=== PATIENT | female | born 1970 | race Caucasian/White ===

== ENCOUNTER 2017-06-29 15:32 | Inpatient (IN) | payer MEDICAID ==
[~2017-06-29] VITALS: Ht 170.2 cm; Wt 110.0 kg
[2017-06-29] MEDS ORDERED: pantoprazole IV 80 MG in normal saline 100ml IV soln 100 ML IV ONE (16:00)
[2017-06-29] MEDS ORDERED: pantoprazole 40 MG vial IV ONE (16:15)
[2017-06-29 16:22] LABS: BASOPHILS % (AUTO) 0.7 % (0-1); EOSINOPHILS # (AUTO) 0.2 X10'3 (0-0.9); EOSINOPHILS % (AUTO) 3.1 % (0-6); LYMPHOCYTES # (AUTO) 1.3 X10'3 (1.1-4.8); LYMPHOCYTES % (AUTO) 21.2 % (21-51); MEAN CORPUSCULAR HEMOGLOBIN 21.3 PG (27.0-31.0); MEAN CORPUSCULAR HGB CONC 31.1 % (33.0-36.5); MEAN CORPUSCULAR VOLUME 68.7 FL (78-98); MEAN PLATELET VOLUME 7.4 FL (7.4-10.4); MONOCYTES # (AUTO) 0.5 X10'3 (0-0.9); MONOCYTES % (AUTO) 8.6 % (2-12); NEUTROPHILS # (AUTO) 4.1 X10'3 (1.8-7.7); NEUTROPHILS % (AUTO) 66.4 % (42-75); PLATELET COUNT 337 X10'3 (140-440); RED BLOOD COUNT 2.77 X10'6 (4.20-5.60); WHITE BLOOD COUNT 6.1 X10'3 (4.5-11.0)
[2017-06-29 16:25] LABS: HEMOGLOBIN 5.9 g/dl (12.0-16.0)
[2017-06-29 16:30] LABS: INR 0.9 INR; PROTHROMBIN TIME 9.7 SECONDS (9.0-12.0)
[2017-06-29] MEDS ORDERED: normal saline 1000ML IV soln IVB ONE (16:30)
[2017-06-29 16:39] LABS: OCCULT BLOOD STOOL POSITIVE (Neg)
[2017-06-29 16:44] LABS: ALANINE AMINOTRANSFERASE 26 U/L (12-78); ALBUMIN 3.2 G/DL (3.4-5.0); ALKALINE PHOSPHATASE 67 IU/L (46-116); ANION GAP 10 (8-16); ASPARTATE AMINO TRANSFERASE 17 U/L (10-37); BILIRUBIN,TOTAL 0.2 MG/DL (0.1-1.0); BLOOD UREA NITROGEN 20 MG/DL (7-18); BUN/CREATININE RATIO 31.3 (6.6-38.0); CALCIUM 8.2 MG/DL (8.5-10.1); CHLORIDE 108 MMOL/L (99-107); CREATININE 0.64 MG/DL (0.40-0.90); GLUCOSE 99 MG/DL (70-104); POTASSIUM 3.8 MMOL/L (3.5-5.1); SODIUM 142 MMOL/L (135-145); TOTAL CARBON DIOXIDE 24.5 MMOL/L (24-32); TOTAL PROTEIN 6.3 G/DL (6.4-8.2); eGFR > 90 ML/MIN
[2017-06-29] MEDS ORDERED: pantoprazole 40MG/NS 100ML BAG 100 ML IV SCH (16:46)
[2017-06-29 17:22] LABS: CLARITY,URINE CLEAR (Clear); COLOR,URINE YELLOW (Yellow); GLUCOSE, URINE NEGATIVE (Neg); KETONES,URINE NEGATIVE (Neg); LEUKOCYTE ESTERASE ,URINE NEGATIVE (Neg); NITRITES, URINE NEGATIVE (Neg); OCCULT BLOOD,URINE NEGATIVE (Neg); PH,URINE 5.5 (4.8-8.0); PROTEIN,URINE NEGATIVE (Neg); UROBILINOGEN,URINE 0.2 E.U/dL (0.2-1.0)
[2017-06-29 17:25] LABS: UA COLLECTION TYPE CLN CATCH MIDSTREAM
[2017-06-29] MEDS ORDERED: HYDROcodone/acetaminophen 10/325mg tab PO PRN (17:25)
[2017-06-29] MEDS ORDERED: HYDROmorphone inj. 0.5 MG/0.5 ML DISP.SYRIN IV PRN ×2 (17:25)
[2017-06-29] MEDS ORDERED: diphenhydrAMINE 25mg capsule PO PRN (17:25)
[2017-06-29] MEDS ORDERED: magnesium hydroxide 30ml (MOM) UD suspension PO PRN (17:25)
[2017-06-29] MEDS ORDERED: mag hydrox/Alum hydrox/simeth 30ml oral suspension PO PRN (17:25)
[2017-06-29] MEDS ORDERED: acetaminophen 325mg tablet PO PRN (17:25)
[2017-06-29] MEDS ORDERED: metoclopramide 5 mg/ml inj IV PRN (17:25)
[2017-06-29] MEDS ORDERED: bisacodyl 10mg suppository rectal RC PRN (17:25)
[2017-06-29] MEDS ORDERED: diphenhydrAMINE 50 mg/ml inj IV PRN (17:25)
[2017-06-29] MEDS ORDERED: HYDROcodone/acetaminophen 5mg/325mg tablet PO PRN (17:25)
[2017-06-29] MEDS ORDERED: ondansetron/PF 4mg/2ml inj IV PRN (17:25)
[2017-06-29] MEDS ORDERED: acetaminophen 650mg rectal suppository RC PRN (17:25)
[2017-06-29] MEDS ORDERED: morphine 4 MG/ML inj SYRINge IV PRN ×2 (17:25)
[2017-06-29 18:12] LABS: HCG SERUM QL NEGATIVE
[2017-06-29 18:17] LABS: LIPASE 146 U/L (73-393); MAGNESIUM 1.8 MG/DL (1.5-2.4)
[2017-06-29 18:27] VITALS: BP 133/73
[2017-06-29 18:50] VITALS: BP 136/79
[2017-06-29] MEDS: famotidine/PF 10 mg/ml inj IV SCH (19:46)
[2017-06-29] MEDS: docusate sod 100mg capsule PO SCH (19:46)
[2017-06-29 19:51] VITALS: BP 136/81
[2017-06-29] MEDS: normal saline 1000ml 1,000 ML IV SCH (19:57)
[2017-06-29 20:31] VITALS: BP 138/86
[2017-06-29] MEDS ORDERED: PANT-47 PO (20:45)
[2017-06-29] MEDS ORDERED: FOLI1TAB16 PO (20:45)
[2017-06-29] MEDS ORDERED: FERR325T28 PO (20:45)
[2017-06-29 20:46] VITALS: BP 133/84
[2017-06-29] MEDS ORDERED: temazepam 15mg capsule PO PRN (21:00)
[2017-06-29 21:35] VITALS: BP 142/92
[2017-06-29] MEDS: pantoprazole 40MG/NS 100ML BAG 100 ML IV SCH (22:33)
[2017-06-30] VITALS (9 sets, daily range): BP systolic 119–136; BP diastolic 72–93
[2017-06-30] MEDS: pantoprazole 40MG/NS 100ML BAG 100 ML IV SCH ×4 (02:25→16:00)
[2017-06-30] MEDS: normal saline 1000ml 1,000 ML IV SCH ×2 (03:24→13:24)
[2017-06-30 06:19] LABS: BASOPHILS % (AUTO) 0.8 % (0-1); EOSINOPHILS # (AUTO) 0.2 X10'3 (0-0.9); EOSINOPHILS % (AUTO) 3.3 % (0-6); HEMATOCRIT 22.4 % (35.0-45.0); HEMOGLOBIN 7.5 g/dl (12.0-16.0); LYMPHOCYTES # (AUTO) 1.7 X10'3 (1.1-4.8); LYMPHOCYTES % (AUTO) 26.6 % (21-51); MEAN CORPUSCULAR HGB CONC 33.5 % (33.0-36.5); MEAN CORPUSCULAR VOLUME 71.6 FL (78-98); MONOCYTES # (AUTO) 0.4 X10'3 (0-0.9); NEUTROPHILS # (AUTO) 3.9 X10'3 (1.8-7.7); NEUTROPHILS % (AUTO) 62.3 % (42-75); PLATELET COUNT 278 X10'3 (140-440); RED BLOOD COUNT 3.12 X10'6 (4.20-5.60); RED CELL DISTRIBUTION WIDTH 22.5 % (11.5-14.5); WHITE BLOOD COUNT 6.3 X10'3 (4.5-11.0)
[2017-06-30 06:34] LABS: ALANINE AMINOTRANSFERASE 23 U/L (12-78); ALBUMIN 2.9 G/DL (3.4-5.0); ALKALINE PHOSPHATASE 59 IU/L (46-116); ANION GAP 8 (8-16); ASPARTATE AMINO TRANSFERASE 16 U/L (10-37); BILIRUBIN,TOTAL 0.3 MG/DL (0.1-1.0); BLOOD UREA NITROGEN 18 MG/DL (7-18); BUN/CREATININE RATIO 25.4 (6.6-38.0); CALCIUM 7.9 MG/DL (8.5-10.1); CHLORIDE 109 MMOL/L (99-107); CREATININE 0.71 MG/DL (0.40-0.90); GLUCOSE 99 MG/DL (70-104); POTASSIUM 3.9 MMOL/L (3.5-5.1); SODIUM 141 MMOL/L (135-145); TOTAL CARBON DIOXIDE 23.8 MMOL/L (24-32); TOTAL PROTEIN 5.7 G/DL (6.4-8.2); eGFR 88 ML/MIN
[2017-06-30] MEDS: docusate sod 100mg capsule PO SCH (07:18)
[2017-06-30] MEDS: famotidine/PF 10 mg/ml inj IV SCH (07:18)
[2017-06-30] MEDS ORDERED: normal saline 1000ml 1,000 ML IV SCH (12:41)
[2017-06-30] MEDS ORDERED: LIDOcaine Viscous 15ml cup PO ONE (12:45)
[2017-06-30] MEDS ORDERED: simethicone 40mg/0.6ml oral drops 30ml MC ONE (12:45)
[2017-06-30] MEDS ORDERED: fentaNYL/PF 50MCG/1 ML 2ML syringe IV PRN (12:45)
[2017-06-30] MEDS ORDERED: MIDAZolam 5mg/5ml vial IV PRN (12:45)
[2017-06-30] MEDS ORDERED: MIDAZolam 5mg/ml 2ml vial ONE (15:02)
[2017-06-30] MEDS ORDERED: fentaNYL/PF 50MCG/1 ML 2ML syringe ONE (15:02)
[2017-06-30] MEDS ORDERED: LIDOcaine Viscous 15ml cup ONE (15:02)
== END 2017-07-01 07:55 | disposition left against medical advice (07) | DRG 241 ==
LOC: ER 15:33 → ED HOLD 17:28 → PCU 3S 22:02 → CMPBEDREQ 22:02
PROVIDERS: ADMIT Family Medicine; ATTEND Internal Medicine Gastroenterology
PROC: 30233N1 Transfusion of Nonautologous Red Blood Cells into Peripheral Vein, Percutaneous Approach (ICD-10-PCS; 2017-06-29)
PROC: 0DB98ZX Excision of Duodenum, Via Natural or Artificial Opening Endoscopic, Diagnostic (ICD-10-PCS; principal; 2017-06-30)
PROC: 0DB68ZX Excision of Stomach, Via Natural or Artificial Opening Endoscopic, Diagnostic (ICD-10-PCS; 2017-06-30)
DX: K27.4 Chronic or unspecified peptic ulcer, site unspecified, with hemorrhage (principal); I50.9 Heart failure, unspecified; D62 Acute posthemorrhagic anemia; Z53.21 Procedure and treatment not carried out due to patient leaving prior to being seen by health care provider; K92.1 Melena; K44.9 Diaphragmatic hernia without obstruction or gangrene; K29.71 Gastritis, unspecified, with bleeding
CPT/HCPCS: 36415; 43239; 71045; 80053; 81003; 82272; 83690; 83735; 83880; 84484; 84703; 85025; 85610; 86885; 86900; 86901; 86920; 87070; 93005; 96361; 96374; 99291; A4620; C9113; G0500; J2250; J3010; J3490; J7030; P9016